=== PATIENT | female | born 1950 | race Caucasian/White ===

== ENCOUNTER 2017-02-05 09:20 | Day surgery (SDC) | payer MEDICARE ==
[~2017-02-05] VITALS: Ht 162.6 cm; Wt 65.8 kg
[~2017-02-05 09:20] MED LIST: 0.9% Sodium Chloride 1,000 ML IV PRN; CHOL100045 PO; CITA20TA11 PO; OMEP20CA11 PO; Sodium Chloride LOK Flush 10 mL Syringe IV PRN; fentaNYL-PF 50 mCg/mL 2 mL Inj IVPUSH PRN
[2017-02-05 09:34] VITALS: BP 113/62; PULSE 66; RESP 16; O2SAT 98
[2017-02-05] MEDS: 0.9% Sodium Chloride 1,000 ML IV PRN ×2 (09:36→10:37)
[2017-02-05] MEDS ORDERED: ZOLP5TAB6 PO (09:36)
[2017-02-05] MEDS ORDERED: OMEP40CA36 PO (09:36)
[2017-02-05 10:47] VITALS: BP 102/57; PULSE 66; RESP 16; O2SAT 96
[2017-02-05 10:57] VITALS: BP 96/47; PULSE 58; RESP 16; O2SAT 95
[2017-02-05 10:59] VITALS: BP 109/49; PULSE 66; RESP 16; O2SAT 96
--- NOTE | 2017-02-05 12:27 | ENDO ---
[address] [address] ENDOSCOPY PROCEDURE PATIENT: QI CADENA : 1950 MR#: [id number] ADMIT: 02/05/2017 JOB ID: [id number] TYPE OF OPERATION: Esophagogastroduodenoscopy (EGD) with biopsy. PREOPERATIVE DIAGNOSIS(ES): Gastroesophageal reflux disease. POSTOPERATIVE DIAGNOSIS(ES): 1. Medium-sized hiatal hernia. 2. Widely open, patent Schatzki ring status post biopsy. ANESTHESIA: Fentanyl 100 mcg, Versed 4 mg IV administered. COMPLICATIONS: None. BLOOD LOSS: Minimal. DESCRIPTION OF PROCEDURE: After risks and benefits were explained to the patient, informed consent was obtained. After anesthesia was administered, upper endoscope was inserted in through the mouth, intubating to the esophagus, stomach, second portion of duodenum. Mucosa carefully examined. After the procedure was done, the scope was withdrawn and the procedure terminated. FINDINGS: Upon inspection of the esophagus, there was a widely open, patent Schatzki ring of the distal esophagus. Z-line located at 35 cm from incisors. Upon entering stomach, the stomach appeared normal, without masses, ulcers, or lesions. Retroflexion showed a medium-sized hiatal hernia. Duodenal bulb, first and second portion were normal. Biopsies taken in the antrum and body of the stomach and distal esophagus. IMPRESSIONS: 1. Medium-sized hiatal hernia. 2. Widely open, patent Schatzki ring status post biopsy. RECOMMENDATION: Await pathology results. Continue antireflux medication. Follow up in [facility] Clinic as needed with Shirley Jameson PA-C.
--- NOTE | 2017-02-08 14:33 | PATH ---
SURGICAL PATHOLOGY Attending Physician:Valente Cuadra MD CASE STATUS: Signed Out PATIENT NAME: QI CADENA PID: [id number] : 1950 DATE COLLECTED:02/05/2017 16:51 SPECIMEN: 1: Gastric, Biopsy 2: Gastric, Biopsy 3: Esophagus, Biopsy CLINICAL HISTORY: 1). GASTRIC BODY 2). GASTRIC ANTRUM (RULE OUT H.PYLORI) 3). DISTAL ESOPHAGUS FINAL DIAGNOSIS: 1.GASTRIC BODY BIOPSIES: MILD CHRONIC GASTRITIS INVOLVING FUNDIC MUCOSA. Negative for evidence of Helicobacter on H&E stain. Negative for intestinal metaplasia. Negative for dysplasia and malignancy. 2.GASTRIC ANTRUM BIOPSY: MILD CHRONIC GASTRITIS INVOLVING ANTRAL MUCOSA. Negative for evidence of Helicobacter on H&E stain. Negative for intestinal metaplasia. Negative for dysplasia and malignancy. 3.DISTAL ESOPHAGUS BIOPSY: FRAGMENTS OF SQUAMOUS EPITHELIUM WITH NO GASTRIC-TYPE EPITHELIUM IDENTIFIED. Negative for intraepithelial eosinophils and significant atypia. ICD10 K29.70 GROSS DESCRIPTION: The specimens are received in formalin, labeled with the patient's name, and sublabeled as the following: (1) gastric body; (2) gastric antrum; (3) distal esophagus. (1) The specimen consists of multiple fragments of the esteves-white glistening rubbery semitranslucent tissue (0.5 x 0.3 x 0.2 cm in aggregate). Section code: (1A) tissue. Specimen entirely submitted. (2) The specimen consists of multiple fragments of esteves-white glistening rubbery semitranslucent tissue (0.7 x 0.3 x 0.2 cm in aggregate). Section code: (2A) tissue. Specimen entirely submitted. (3) The specimen consists of multiple fragments of hercules-white translucent glistening tissue (0.4 x 0.2 x 0.1 cm in aggregate). Section code: (3A) tissue. Specimen entirely submitted. 02/06/17 JM MICRO DESCRIPTION: See diagnosis. ICD-9 CODES: CPT CODES: 1: 82643 2: 33231 3: 72259 Electronically Signed Out Emmett Calderon MD [facility] Pathology [facility] [address] [place] [address] Technical component performed at [facility], [address], [place], [address]
== END 2017-02-05 23:59 | disposition home or self-care (01) ==
LOC: END 09:20
PROVIDERS: ATTEND Internal Medicine Gastroenterology
DX: K21.9 Gastro-esophageal reflux disease without esophagitis (principal); K44.9 Diaphragmatic hernia without obstruction or gangrene; K22.2 Esophageal obstruction; K29.50 Unspecified chronic gastritis without bleeding
CPT/HCPCS: 43239; G0500; J2250; J3010; J7030